=== PATIENT | male | born 1945 | race Caucasian/White ===

== ENCOUNTER 2021-02-28 09:37 | Inpatient (IN) | payer OTHER ==
[~2021-02-28] VITALS: Ht 182.9 cm; Wt 63.1 kg
[2021-02-28 10:56] LABS: BASOPHIL 0.2 % (0-2); EOSINOPHIL 0 % (0-7); HCT 40.6 % (42.0-52.0); HGB 13.9 g/dl (13.2-18.0); LYMPHOCYTE 35.6 % (15-48); MCH 32.9 pg (25.0-31.0); MCHC 34.2 g/dL (32.0-36.0); MCV 96.2 fL (78.0-100.0); MONOCYTE 7.9 % (0-12); MPV 11.2 fL (6.0-9.5); NEUTROPHIL 55.4 % (41-80); NRBC 0; PLT 114 K/uL (150-400); RBC 4.22 M/uL (4.70-6.00); RDW 12.5 % (11.5-14.0)
[2021-02-28 10:58] LABS: WBC 6.3 K/uL (4.0-10.5)
[2021-02-28 11:13] LABS: ALBUMIN 2.9 g/dL (3.4-5.0); BILIRUBIN - TOTAL 0.8 mg/dL (0.2-1.0); CREATININE 1.21 mg/dL (0.67-1.17); GLOBULIN (CALCULATION) 3.5 g/dL; POTASSIUM 3.8 mmol/L (3.5-5.1); TOTAL PROTEIN 6.4 g/dL (6.4-8.2)
[2021-02-28 11:42] LABS: C-REACTIVE PROTEIN 17.9 mg/dL (<=0.90)
[2021-02-28 11:49] LABS: INFLUENZA A NAA NEGATIVE (NEGATIVE)
[2021-02-28 11:51] LABS: CORONAVIRUS 2019 SARS-COV-2 POSITIVE (NEGATIVE)
[2021-03-01 07:17] LABS: BASOPHIL 0.1 % (0-2); EOSINOPHIL 0 % (0-7); HCT 36.7 % (42.0-52.0); HGB 12.7 g/dl (13.2-18.0); MCH 33.2 pg (25.0-31.0); MCHC 34.6 g/dL (32.0-36.0); MCV 95.8 fL (78.0-100.0); MONOCYTE 6.6 % (0-12); MPV 11.5 fL (6.0-9.5); NEUTROPHIL 49.2 % (41-80); NRBC 0; PLT 140 K/uL (150-400); RBC 3.83 M/uL (4.70-6.00); RDW 12.4 % (11.5-14.0); WBC 7.8 K/uL (4.0-10.5)
[2021-03-01 07:25] LABS: LYMPHOCYTE 43.5 % (15-48)
[2021-03-01 08:06] LABS: ALBUMIN 2.4 g/dL (3.4-5.0); BILIRUBIN - TOTAL 0.5 mg/dL (0.2-1.0); BUN/CREAT RATIO (CALC) 22.7 RATIO; CREATININE 0.88 mg/dL (0.67-1.17); GLOBULIN (CALCULATION) 2.6 g/dL; POTASSIUM 4.1 mmol/L (3.5-5.1)
[2021-03-01] MEDS ORDERED: CLORAZEPATE DIP15 MG PO (12:15)
[2021-03-01] MEDS ORDERED: VALSARTAN80 MG PO (12:15)
[2021-03-01] MEDS ORDERED: ATORVASTATIN CA20 MG PO (12:15)
[2021-03-02 07:55] LABS: BASOPHIL 0.1 % (0-2); EOSINOPHIL 0 % (0-7); HCT 38.8 % (42.0-52.0); HGB 13.1 g/dl (13.2-18.0); MCH 32.7 pg (25.0-31.0); MCHC 33.8 g/dL (32.0-36.0); MCV 96.8 fL (78.0-100.0); MPV 11.4 fL (6.0-9.5); NRBC 0; PLT 157 K/uL (150-400); RBC 4.01 M/uL (4.70-6.00); RDW 12.5 % (11.5-14.0); WBC 12.9 K/uL (4.0-10.5)
[2021-03-02 08:30] LABS: ALBUMIN 2.4 g/dL (3.4-5.0); BILIRUBIN - TOTAL 0.5 mg/dL (0.2-1.0); BUN/CREAT RATIO (CALC) 27.1 RATIO; CREATININE 0.85 mg/dL (0.67-1.17); POTASSIUM 4.3 mmol/L (3.5-5.1); TOTAL PROTEIN 5.4 g/dL (6.4-8.2)
--- NOTE | 2021-03-02 16:40 | NUR ---
TALKED WITH FAMILY/SON AND LET THEM KNOW THAT THE PATIENT IS BEING MOVED TO ICU1
--- NOTE | 2021-03-02 22:26 | NUR ---
2220 PATIENT TRANSFERRED TO [facility] VIA WHEELCHAIR. OXYGEN VIA PORTABLE TO MAINTAIN OXYGEN SATS. PERSONEL BELONGINGS SENT WITH PATIENT.CONDITION STABLE AT TIME OF TRANSFER.
[2021-03-03 06:01] LABS: BASOPHIL 0.1 % (0-2); EOSINOPHIL 0 % (0-7); HGB 12.7 g/dl (13.2-18.0); LYMPHOCYTE 22.6 % (15-48); MCH 32.9 pg (25.0-31.0); MCHC 34.3 g/dL (32.0-36.0); MCV 95.9 fL (78.0-100.0); MPV 11.1 fL (6.0-9.5); NEUTROPHIL 72.6 % (41-80); NRBC 0; PLT 181 K/uL (150-400); RBC 3.86 M/uL (4.70-6.00); RDW 12.6 % (11.5-14.0); WBC 7.1 K/uL (4.0-10.5)
[2021-03-03 07:07] LABS: BUN/CREAT RATIO (CALC) 19.8 RATIO; CREATININE 0.91 mg/dL (0.67-1.17); POTASSIUM 4.1 mmol/L (3.5-5.1)
--- NOTE | 2021-03-03 16:30 | NUR ---
03/03/21 Willmonitor for discahrge planning needs.
[2021-03-04 05:51] LABS: BASOPHIL 0.2 % (0-2); EOSINOPHIL 0 % (0-7); HCT 35.9 % (42.0-52.0); HGB 12.1 g/dl (13.2-18.0); LYMPHOCYTE 27.2 % (15-48); MCH 32.6 pg (25.0-31.0); MCHC 33.7 g/dL (32.0-36.0); MCV 96.8 fL (78.0-100.0); MONOCYTE 6.5 % (0-12); MPV 10.9 fL (6.0-9.5); NEUTROPHIL 65.5 % (41-80); NRBC 0; PLT 183 K/uL (150-400); RBC 3.71 M/uL (4.70-6.00); RDW 12.3 % (11.5-14.0); WBC 6.6 K/uL (4.0-10.5)
[2021-03-04 06:13] LABS: BUN/CREAT RATIO (CALC) 27.4 RATIO; CREATININE 0.84 mg/dL (0.67-1.17)
[2021-03-06 04:41] LABS: BASOPHIL 0.1 % (0-2); EOSINOPHIL 0 % (0-7); HCT 34.8 % (42.0-52.0); HGB 11.6 g/dl (13.2-18.0); LYMPHOCYTE 15.4 % (15-48); MCH 32.7 pg (25.0-31.0); MCHC 33.3 g/dL (32.0-36.0); MONOCYTE 4.5 % (0-12); MPV 11.2 fL (6.0-9.5); NEUTROPHIL 79.3 % (41-80); NRBC 0; PLT 242 K/uL (150-400); RBC 3.55 M/uL (4.70-6.00); RDW 12.5 % (11.5-14.0); WBC 9.6 K/uL (4.0-10.5)
[2021-03-06 05:09] LABS: BUN/CREAT RATIO (CALC) 33.7 RATIO; CREATININE 0.89 mg/dL (0.67-1.17); POTASSIUM 4.8 mmol/L (3.5-5.1)
[2021-03-08 05:45] LABS: BASOPHIL 0.2 % (0-2); EOSINOPHIL 0 % (0-7); HCT 39.3 % (42.0-52.0); LYMPHOCYTE 14.3 % (15-48); MCH 32.4 pg (25.0-31.0); MCHC 33.1 g/dL (32.0-36.0); MONOCYTE 4.2 % (0-12); MPV 11.3 fL (6.0-9.5); NEUTROPHIL 79.7 % (41-80); NRBC 0; PLT 271 K/uL (150-400); RBC 4.01 M/uL (4.70-6.00); RDW 12.4 % (11.5-14.0); WBC 14.7 K/uL (4.0-10.5)
[2021-03-08 06:22] LABS: BUN/CREAT RATIO (CALC) 26.1 RATIO; CREATININE 0.88 mg/dL (0.67-1.17); POTASSIUM 4.8 mmol/L (3.5-5.1)
[2021-03-08 17:19] LABS: LACTIC ACID 2.2 mmol/L (0.4-1.9)
[2021-03-09 06:01] LABS: BASOPHIL 0.2 % (0-2); EOSINOPHIL 0.1 % (0-7); HCT 35.7 % (42.0-52.0); HGB 12.1 g/dl (13.2-18.0); LYMPHOCYTE 11.3 % (15-48); MCHC 33.9 g/dL (32.0-36.0); MCV 97.3 fL (78.0-100.0); MONOCYTE 2.9 % (0-12); MPV 11.2 fL (6.0-9.5); NEUTROPHIL 84.1 % (41-80); NRBC 0; PLT 270 K/uL (150-400); RBC 3.67 M/uL (4.70-6.00); RDW 12.7 % (11.5-14.0); WBC 11.1 K/uL (4.0-10.5)
[2021-03-09 06:34] LABS: BUN/CREAT RATIO (CALC) 23.9 RATIO; C-REACTIVE PROTEIN 11.3 mg/dL (<=0.90); CREATININE 0.92 mg/dL (0.67-1.17); POTASSIUM 4.4 mmol/L (3.5-5.1)
[2021-03-09 08:37] LABS: BILIRUBIN NEGATIVE (NEGATIVE); BLOOD NEGATIVE Ery/uL (NEGATIVE); CLARITY CLEAR (CLEAR); COLOR YELLOW (YELLOW); GLUCOSE (U) NORMAL (NORMAL); LEUKOCYTES NEGATIVE Leu/uL (NEGATIVE); NITRITE NEGATIVE (NEGATIVE); PROTEIN NEGATIVE (NEGATIVE)
[2021-03-09 08:46] LABS: BACTERIA TRACE; URINARY WBC RARE
--- NOTE | 2021-03-10 15:49 | NUR ---
TC TO THE [facility] SPOKE WITH BARBARA CERDA. SHE ADVISED TO FAX CLINICAL INFORMATION TO [phone]. SHE STATED THAT [facility] WILL CONTACT PT AT HOME TO SET UP THE HH SERVICES. ADVISED PT. NURSE, TERESITA.
[2021-03-11 06:41] LABS: BASOPHIL 0.2 % (0-2); EOSINOPHIL 0.1 % (0-7); HCT 36.2 % (42.0-52.0); HGB 12.4 g/dl (13.2-18.0); LYMPHOCYTE 15.4 % (15-48); MCH 32.8 pg (25.0-31.0); MCHC 34.3 g/dL (32.0-36.0); MCV 95.8 fL (78.0-100.0); MONOCYTE 6.1 % (0-12); NEUTROPHIL 76.8 % (41-80); NRBC 0; PLT 271 K/uL (150-400); RBC 3.78 M/uL (4.70-6.00); RDW 12.5 % (11.5-14.0); WBC 9.5 K/uL (4.0-10.5)
[2021-03-11 07:03] LABS: C-REACTIVE PROTEIN 5.2 mg/dL (<=0.90); CREATININE 0.89 mg/dL (0.67-1.17); POTASSIUM 4.2 mmol/L (3.5-5.1)
[2021-03-13 06:07] LABS: BASOPHIL 0.1 % (0-2); EOSINOPHIL 0.5 % (0-7); HCT 39.3 % (42.0-52.0); HGB 13.6 g/dl (13.2-18.0); LYMPHOCYTE 14.2 % (15-48); MCH 33.2 pg (25.0-31.0); MCHC 34.6 g/dL (32.0-36.0); MCV 95.9 fL (78.0-100.0); MONOCYTE 6.6 % (0-12); MPV 11.1 fL (6.0-9.5); NEUTROPHIL 77.6 % (41-80); NRBC 0; PLT 209 K/uL (150-400); RDW 12.6 % (11.5-14.0)
[2021-03-13 06:42] LABS: BUN/CREAT RATIO (CALC) 32.6 RATIO; C-REACTIVE PROTEIN 6.2 mg/dL (<=0.90); CREATININE 0.95 mg/dL (0.67-1.17); POTASSIUM 4.4 mmol/L (3.5-5.1)
[2021-03-14 06:39] LABS: BUN/CREAT RATIO (CALC) 34.3 RATIO; C-REACTIVE PROTEIN 10.4 mg/dL (<=0.90); CREATININE 1.02 mg/dL (0.67-1.17); POTASSIUM 4.4 mmol/L (3.5-5.1)
[2021-03-15 07:11] LABS: BUN/CREAT RATIO (CALC) 45.2 RATIO; CREATININE 0.93 mg/dL (0.67-1.17); POTASSIUM 4.4 mmol/L (3.5-5.1)
[2021-03-17 07:41] LABS: BUN/CREAT RATIO (CALC) 28.6 RATIO; CREATININE 0.91 mg/dL (0.67-1.17); POTASSIUM 4.4 mmol/L (3.5-5.1)
[2021-03-17] MEDS ORDERED: FUROSEMIDE 20MG20 MG PO (12:29)
[2021-03-17] MEDS ORDERED: DIAZEPAM 5MG TAB5 MG PO (12:29)
--- NOTE | 2021-03-17 14:07 | NUR ---
03/17/21 Mr. Salas lives at home with his spouse. Per telephone conversation with his son, Paddy Salas, Mr. Salas was independent priopr to admission. Paddy Salas chose [facility] for DME needs and [facility] if needed. - 's has delivered 02 at 8L oximizer and [facility] accepted the referral for nursing and PT. A report was given to Glenis Correia MS, RN.
== END 2021-03-17 14:52 | disposition home health service (06) | DRG 177 ==
LOC: FER 09:37 → FMS 12:58 → FTCU 12:58 → FMS 12:59 → FICU 03-02 15:03 → FMS 03-02 15:03 → FTCU 03-02 22:00 → FMS 03-10 10:43
PROVIDERS: Allergy & Immunology Allergy; Emergency Medicine; Family Medicine; ADMIT Internal Medicine
PROC: XW033E5 Introduction of Remdesivir Anti-infective into Peripheral Vein, Percutaneous Approach, New Technology Group 5 (ICD-10-PCS; principal; 2021-02-28)
PROC: 3E0333Z Introduction of Anti-inflammatory into Peripheral Vein, Percutaneous Approach (ICD-10-PCS; 2021-02-28)
PROC: XW0DXM6 Introduction of Baricitinib into Mouth and Pharynx, External Approach, New Technology Group 6 (ICD-10-PCS; 2021-02-28)
PROC: 5A0935A Assistance with Respiratory Ventilation, Less than 24 Consecutive Hours, High Flow/Velocity Cannula (ICD-10-PCS; 2021-02-28)
DX: U07.1 COVID-19 (principal); J96.01 Acute respiratory failure with hypoxia; J12.82 Pneumonia due to coronavirus disease 2019; J96.21 Acute and chronic respiratory failure with hypoxia; A41.9 Sepsis, unspecified organism; R65.20 Severe sepsis without septic shock; J15.9 Unspecified bacterial pneumonia; N17.9 Acute kidney failure, unspecified; J81.1 Chronic pulmonary edema; F41.9 Anxiety disorder, unspecified; I10 Essential (primary) hypertension; E78.5 Hyperlipidemia, unspecified; E86.0 Dehydration; D69.6 Thrombocytopenia, unspecified; Z90.49 Acquired absence of other specified parts of digestive tract; Z23 Encounter for immunization; Z66 Do not resuscitate; K59.00 Constipation, unspecified
CPT/HCPCS: 36415; 36600; 71045; 71046; 71275; 80048; 80053; 81001; 82728; 82803; 82962; 83605; 83880; 84145; 84484; 85025; 85379; 86140; 86141; 87040; 93005; 94010; 94640; 97162; 97166; 97530-GP; 97535; C9399; J0696; J1100; J1650; J1940; J2270; J7030; J7050; J7120; J8540; Q9967; U0002